=== PATIENT | male | born 2000 ===

== ENCOUNTER 2023-05-08 21:23 | Outpatient (CLI) | payer MEDICAID, SELFPAY | END 2023-05-08 21:24 | disposition home or self-care (01) | PROVIDERS: Visit Provider Family Medicine | DX: T65.93XA Toxic effect of unspecified substance, assault, initial encounter (principal); Y92.410 Unspecified street and highway as the place of occurrence of the external cause | CPT/HCPCS: A0425; A0429 ==

== ENCOUNTER 2023-05-08 21:50 | Emergency (ER) | payer MEDICAID, SELFPAY ==
--- NOTE | 2023-05-08 | CRLHL7_ITS ---
For Patients: As a result of the Century Cures Act, medical imaging exams and procedure reports are released immediately into your electronic medical record. You may view this report before your referring provider. If you have questions, please contact your health care provider. Indication: Intubation Technique: Chest 1 view Comparison: None Findings/Impression: Endotracheal tube tip terminates 1.9 cm above the level of the lauri. Normal cardiac size. Clear lungs and pleural spaces. No acute osseous abnormality. Dictated by Sue Murray MD @ 05/08/2023 11:40:43 PM (Electronically Signed)
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
[2023-05-08 21:40] VITALS: O2SAT 99
[2023-05-08 21:50] VITALS: BP 154/97; PULSE 108; TEMP 36.4; O2SAT 99
[2023-05-08] MEDS: 0.9 % SODIUM CHLORIDE 1000 ml 1,000 ML IV (21:50)
[2023-05-08 21:56] VITALS: BP 150/89; PULSE 107; O2SAT 99
[2023-05-08] MEDS: ETOMIDATE 2 MG/ML inj 21.8 MG IVP (22:02)
[2023-05-08] MEDS: SUCCINYLCHOLINE 20 MG/ML INJ 110 MG IVP (22:03)
--- NOTE | 2023-05-08 22:04 | ED.NURSE ---
Pt intubated with 7.5 ETT by on first attempt. 27.5 cm at teeth. Confirmed by xray, auscultation, and end tidal CO2 monitoring. Pt manually ventilated with BVM at 15 LPM O2. Placed on ventilator at 2218. Vent rate 18, 100% mV, 5 peep, 50% FiO2, VTE 666.
[2023-05-08 22:06] VITALS: BP 150/89; PULSE 123; O2SAT 100
[2023-05-08] MEDS: MIDAZOLAM HCL 1 MG/ML inj 2 MG IVP ×3 (22:06→22:37)
[2023-05-08] MEDS: fentaNYL 100 MCG/2 ML inj IVP ×2 (22:06→22:39)
[2023-05-08] MEDS: VECURONIUM 1 MG/ML INJ 7.2 MG IVP (22:11)
[2023-05-08 22:14] VITALS: BP 163/99; PULSE 116; O2SAT 100
[2023-05-08 22:17] LABS: Lactate* 2.4 mmol/L (0.5-1.9)
[2023-05-08 22:19] VITALS: BP 137/86; PULSE 104; O2SAT 97
[2023-05-08 22:29] LABS: Albumin* 1.9 g/dL (3.3-5.0); Basophils Absolute Auto 0.08 K/uL (0.00-0.30); Basophils Percent Auto 0.8 % (0.0-3.0); Chloride* 107 mmol/L (96-114); Eosinophils Absolute Auto 0.27 K/uL (0.00-0.50); Eosinophils Percent Auto 2.7 % (0.0-7.0); Hematocrit 43.2 % (37.0-53.0); Hemoglobin* 14.9 gm/dL (13.5-17.5); Immature Granulocytes Abs Auto 0.08 K/uL (0.00-0.30); Immature Granulocytes Pct Auto 0.8 %; Lymphocytes Percent Auto 46.8 % (20-44); Mean Corpuscular HGB Conc 35 gm/dL (32-36); Mean Corpuscular Hemoglobin 32 pg (26-34); Mean Corpuscular Volume 92 fL (80-100); Monocytes Percent Auto 4.8 % (0.0-11.0); Neutrophils Absolute Auto 4.38 K/uL (1.7-7.0); Neutrophils Percent Auto 44.1 % (42.0-72.0); Platelet Count* 285 K/uL (140-440); Potassium* 3.4 mmol/L (3.6-5.1); RDW Coefficient of Variation % 12.3 % (11.5-15.5); Red Blood Count 4.69 m/uL (4.30-5.90); Sodium* 140 mmol/L (135-149); White Blood Count* 9.94 K/uL (4.50-11.00)
[2023-05-08 22:31] LABS: Creatinine* 0.8 mg/dL (0.5-1.5); Estimated Glomerular Filt Rate 126 ml/min
[2023-05-08 22:32] LABS: Alanine Aminotransferase* 26 U/L (4-50); Alkaline Phosphatase* 89 U/L (40-150); Aspartate Amino Transferase* 31 U/L (12-35); Bilirubin Total* 0.2 mg/dL (0.1-1.5); Blood Urea Nitrogen* 13 mg/dL (5-24); Carbon Dioxide* 24 mmol/L (20-32); Glucose* 98 mg/dL (60-115); Total Protein* 5.8 g/dL (6.0-8.3)
[2023-05-08 22:33] LABS: Calcium* 7.4 mg/dL (8.4-10.6)
[2023-05-08 22:34] LABS: Amphetamine Screen Urine Negative (Negative); Barbiturate Screen Urine Negative (Negative); Benzodiazepines Screen Urine Negative (Negative); Cannabinoid Screen Urine Negative (Negative); Cocaine Screen Urine Negative (Negative); Methadone Screen Urine Negative (Negative); Methamphetamines Screen Urine Negative (Negative); Opiate Screen Urine Negative (Negative); Oxycodone Screen Urine Negative (Negative); Phencyclidine Screen Urine Negative (Negative); Tricyclic Antidepressant Urine Negative (Negative)
[2023-05-08] MEDS: VECURONIUM 1 MG/ML INJ 7 MG IVP (22:45)
[2023-05-08 22:48] LABS: Troponin I* < 0.01 ng/mL (0.01-0.04)
[2023-05-08 22:52] LABS: Slide Review Reflex No
[2023-05-08 23:22] LABS: Ethanol* 0.22 % (0.01-0.03)
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
--- NOTE | 2023-05-09 01:58 | ED.NURSE ---
POC glucose 105.
== END 2023-05-08 23:01 | disposition short-term general hospital (02) ==
PROVIDERS: Emergency Provider Family Medicine
DX: T50.904A Poisoning by unspecified drugs, medicaments and biological substances, undetermined, initial encounter (principal); R40.4 Transient alteration of awareness; S09.90XA Unspecified injury of head, initial encounter; V43.52XA Car driver injured in collision with other type car in traffic accident, initial encounter; F10.129 Alcohol abuse with intoxication, unspecified
CPT/HCPCS: 31500; 36415; 70450; 71045; 72125; 80048; 80053; 80306; 82077; 82962; 83605; 84484; 85025; 96361; 96374; 96375; 96376; 99285; 99291; G0390; J0330; J2250; J2310; J3010; J7030